=== PATIENT | male | born 1975 | race Two or more races ===

== ENCOUNTER 2016-09-17 23:42 | Observation (INO) | payer SELFPAY ==
[2016-09-17 23:52] VITALS: BP 132/74; PULSE 83; RESP 16; TEMP 98.2; O2SAT 99
--- NOTE | 2016-09-18 00:30 | ED PDOC ---
HPI: Psych/Substance Abuse Time Seen by Provider: 09/17/16 23:50 Chief Complaint (Nursing): Alcohol Ingestion Chief Complaint (Provider): Alcohol Ingestion History Per: Patient History/Exam Limitations: intoxication Current Symptoms Are (Timing): Still Present Additional Complaint(s): 41 y/o female who presents to the emergency department via EMS after found publicly intoxicated prior to arrival. Admits to drinking. Denies any further complaints. Past Medical History Reviewed: Historical Data, Nursing Documentation, Vital Signs Vital Signs: Last Vital Signs Temp 98.2 F 09/17/16 23:50 Pulse 83 09/17/16 23:50 Resp 16 09/17/16 23:50 BP 132/74 09/17/16 23:50 Pulse Ox 99 09/17/16 23:50 - Medical History PMH: No Chronic Diseases - Family History Family History: States: No Known Family Hx - Living Arrangements Living Arrangements: Other (undomiciled) - Social History Current smoker - smoking cessation education provided: Yes Alcohol: > 2 Drinks/Day Drugs: Denies - Allergies Allergies/Adverse Reactions: Allergies Allergy/AdvReac Type Severity Reaction Status Date / Time No Known Allergies Allergy Verified 09/17/16 23:50 Review of Systems Review Of Systems: ROS cannot be obtained secondary to pt's inabilty to answer questions. Physical Exam - Reviewed Nursing Documentation Reviewed: Yes Vital Signs Reviewed: Yes - Physical Exam Appears: Positive for: Non-toxic, No Acute Distress Head Exam: Positive for: ATRAUMATIC, NORMOCEPHALIC Skin: Positive for: Normal Color, Warm, Dry Eye Exam: Positive for: Normal appearance. Negative for: Conjunctival injection ENT: Positive for: Normal ENT Inspection. Negative for: Pharyngeal Erythema Neck: Positive for: Normal, Supple Cardiovascular/Chest: Positive for: Regular Rate, Rhythm. Negative for: Murmur Respiratory: Positive for: Normal Breath Sounds. Negative for: Accessory Muscle Use, Respiratory Distress Gastrointestinal/Abdominal: Positive for: Normal Exam, Soft. Negative for: Tenderness Extremity: Positive for: Normal ROM. Negative for: Pedal Edema, Swelling Neurologic/Psych: Positive for: Oriented - ECG O2 Sat by Pulse Oximetry: 99 (RA) Pulse Ox Interpretation: Normal Medical Decision Making Medical Decision Making: Time: 23:50 Initial impression: Alcohol Intoxication Initial plan: --Alcohol Serum Stat --AccuCheck --Revaluation Scribe Attestation: Documented by Ros Mcelroy, acting as a scribe for Nilson Lopez MD. Provider Scribe Attestation: All medical record entries made by the Scribe were at my direction and personally dictated by me. I have reviewed the chart and agree that the record accurately reflects my personal performance of the history, physical exam, medical decision making, and the department course for this patient. I have also personally directed, reviewed, and agree with the discharge instructions and disposition. ED OBSERVATION Date of observation admission: 09/18/16 Time of observation admission: 00:45 - Observation admission statement Patient is being placed in observation because:: of alcohol intoxication. - Goals of Observation Goals of observation are:: clinical sobriety. - Progress Note Progress Note: 09/18/16 06:23 Upon provider reevaluation patient is clinically sober and requires no further treatment. Clinical Impression: Alcohol Intoxication Disposition - Clinical Impression Clinical Impression: Alcohol abuse with intoxication - Disposition Disposition: Routine/Home Disposition Time: 00:45 Condition: STABLE
== END 2016-09-18 05:23 | disposition home or self-care (01) ==
LOC: H.ER 23:42 → H.EROBSV 09-18 00:45
PROVIDERS: ADMIT Emergency Medicine; ATTEND Emergency Medicine
DX: F10.129 Alcohol abuse with intoxication, unspecified (principal); F17.200 Nicotine dependence, unspecified, uncomplicated
CPT/HCPCS: 36415; 82948; 99282; G0378; G0480